=== PATIENT | male | born 1985 | race Caucasian/White ===

== ENCOUNTER 2020-02-20 13:33 | Emergency (ER) | payer OTHER, SELFPAY ==
[2020-02-20 14:30] VITALS: PULSE 81; RESP 20; TEMP 36.2; O2SAT 97; BMI 37.5
--- NOTE | 2020-02-20 14:46 | HMH.EDUTC ---
[facility] [place] Disposition Clinical Impression: Encounter for laboratory testing for COVID-19 virus Disposition: Home, Self-Care Condition on Discharge: Good Instructions: DI for COVID-19 (Suspected or Confirmed ), COVID-19: Testing and Tracing, Preventing the Spread of Coronavirus Discharge Instructions Additional Instructions: *Monitor Temp, Over the counter Motrin or Tylenol as directed/as needed Tylenol every 4 hours and Motrin every 6 hours (as long as your family doctor has told you that you can take it) for fever or pain. and straight to ER if unable to lower temp less than 101.0 after medication given Follow up IMMEDIATELY for new or worsening symptoms or no Noticeable improvement over the next 48-72 hours. 911 for difficulty breathing or swallowing You were tested for today for COVID19 your test result should be back in the next 24-48 hours, you may call to the [facility] to see if your test results are back in the next 48 hours [phone] [facility] hours are 9am-9pm You was given a handout with instructions for Self Quarantine and Self isolation for while you wait on test results and what to do if they are positive If you are positive the Health Dept will be contacting you also Referrals: Chaitanya Herrera [Primary Care Provider] - As needed Forms: Work/School Release Time of Disposition: 14:49 Medical Decision Making - Jeevan Inquiry Pt receiving controlled substance: No Jeevan was queried for this patient: No Vital Signs: 02/20/20 14:30 Temperature 97.1 F L Temperature Source Oral Pulse Rate [Right] 81 Respiratory Rate 20 02 Sat by Pulse Oximetry 97 Oxygen Delivery Method Room Air Orders (Tests/Meds): ORDERS Category Date Time Status Covid-19 Nasal PCR ([facility]) Routine Lab 02/20/20 14:28 Ordered [facility] [place] HPI - General Stated complaint: Covid test Time Seen by Provider: 02/20/20 14:46 Mode of Arrival: Ambulatory Source of Information: Patient Limitations: No Limitations Description of Symptoms (Recalled from Triage Doc. by RN): COVID TEST D/T EXPOSURE; DENIES SYPTOMS HEENT Symptoms (Recalled from RN notes): No Resp Symptoms (Recalled from RN notes): No Skin Symptoms (Recalled from RN notes): No MS Symptoms (Recalled from RN notes): No Functional Status (Recalled from RN notes): WNL - History of Present Illness Provider Complaint: Patient state that he was recently around someone that has recently tested positive for COVID State that he wanted to get tested States that he isnt have any symptoms - Related Data Allergies Allergy/AdvReac Type Severity Reaction Status Date / Time No Known Allergies Allergy Verified 10/05/18 11:48 - Worker's Comp Is this a Worker's Comp case?: No H History - Hepatitis A Screen Drug use history?: No High risk sexual behaviors?: No History of sexually transmitted infection?: No Currently employed?: No Childcare worker?: No Do you have indoor plumbing?: Yes Do you have electricity?: Yes Attestation statement:: This patient has been screened for Hepatitis A risk factors. I have reviewed the patient's past medical history: Yes - Social History Alcohol Intake: never Occupational Status: other ROS Obtained: Yes All systems reviewed & no additional complaints, Yes Systems reviewed as appropriate & no additional complaints - Constitutional Constitutional: Reports system reviewed and no additional complaints, except as docu, Denies body ache, Denies chills, Denies fever(s), Denies headache(s) - ENT Ears, Nose, Mouth, and Throat: Reports system reviewed and no additional complaints, except as docu, Denies otalgia, Denies sinus pain, Denies sinus pressure, Denies sore throat - Cardiovascular Cardiovascular: Reports system reviewed and no additional complaints, except as docu Physical Exam - General General appearance: alert, in no apparent distress - Respiratory Respiratory exam: Present: normal lung sounds bilaterally. Absent: respiratory distress - C
[2020-02-20 14:52] VITALS: BP 00/00; PULSE 81; RESP 20; TEMP 36.2; O2SAT 97
--- NOTE | 2020-05-11 10:52 | PC.NURSE ---
@ 1041 Dr. Arizmendi on phone with Dr. Greenfield, being notified that this pt is being transferred from [facility] ER to [facility] and should be sent to bean sprout laborer. @1042- Report received from Tasha Jessica RN in [facility] to this RN. @1043- Dr. Arizmendi s/w [facility] ER MD- Dr. Tellez and received report. @1045- janitorial services supervisor Sherie Ambriz RN notified of the above. @1058- Dr. Arizmendi s/w Dr. Greenfield- notified he would like his team paged, 10min from the time pt leaves [facility]. @1100- s/w Tasha Jessica RN and notified that pt was just loaded into ambulance.
== END 2020-02-20 15:10 | disposition home or self-care (01) ==
PROVIDERS: Emergency Provider Nurse Practitioner; PCP Family Medicine
DX: Z20.822 Contact with and (suspected) exposure to COVID-19 (principal)
CPT/HCPCS: 99202; G0463; U0003

== ENCOUNTER 2020-05-11 11:34 | Observation (INO) | payer OTHER, SELFPAY ==
[2020-05-11] VITALS (21 sets, daily range): BP systolic 111–135; BP diastolic 50–87; PULSE 54–853; RESP 16–20; TEMP 36.6–36.9; O2SAT 94–98; BMI 37.5
--- NOTE | 2020-05-11 | IR_ITS ---
APPROVED REPORT Patient Location: Emergent Ingredient Handler: ANICETO Hastings RT (R) PROCEDURES Left heart catheterization Left ventriculogram Selective coronary angiogram INDICATION Acute non-ST elevation myocardial infarction Informed consent was obtained prior to the procedure. COMPLICATIONS None Estimated Blood Loss: less than 10ml TECHNIQUE One percent lidocaine used to anesthetize the right anterior aspect of the wrist. The right radial artery was accessed via the Seldinger technique. A 6 [place] sheath was placed in the right radial artery. 2.5 mg of verapamil, 800 mcg of nitroglycerin, 1mg Lidocaine and 5000 U Heparin were given through the arterial sheath. A Alyticspa catheter was also used to perform left heart catheterization, left ventriculogram and selective coronary angiogram. At the end of the procedure the sheath was removed good hemostasis was achieved using Traclet band, patient was transferred to the postop holding area in stable condition. ANGIOGRAPHIC RESULTS The left main artery Normal The left anterior descending artery Normal The circumflex artery Normal The right coronary artery Dominant normal The MCNEAL ventriculogram reveals Normal 60% The left ventricular end-diastolic pressure 18 mmHg IMPRESSION Normal coronary arteries Normal ejection fraction Mildly elevated LVEDP Elevated troponin likely secondary to myocarditis PLAN 1. Admit overnight and observe to make sure myocarditis does not progress into severe LV dysfunction 2. Supportive care 3. Check Covid status Electronically signed by : Heladio Greenfield, 05/11/2020 12:23:34
--- NOTE | 2020-05-11 11:33 | ECG_ITS ---
APPROVED REPORT Exam: Resting ECG HR:76 bpm ECG Measurements Heart Rate 76 AXES OK 182 P 55 QRSd 92 QRS -5 QT 382 T 22 QTc 429 Conclusion Normal sinus rhythm Normal ECG Electronically signed by : Bhaskar Zurita, 05/11/2020 21:04:54
--- NOTE | 2020-05-11 11:35 | HMH.EDCP ---
ED Disposition Clinical Impression: NSTEMI (non-ST elevated myocardial infarction) Disposition: Admitted as Observation Condition on Discharge: Good Time of Disposition: 11:50 - Critical Care Critical Care Time: No Attestation: On , the high probability of a clinically significant, sudden or life threatening deterioration of the following system(s) required my full and direct attention, intervention and personal management. The time I documented below is in addition to time spent performing reported procedures but includes the following listed in this critical care notation. Medical Decision Making - Medical Records Medical records reviewed: Yes: I reviewed the patient's medical records. - Jeevan Inquiry Pt receiving controlled substance: No Vital Signs: 05/11/20 11:34 Temperature 97.9 F Temperature Source Oral Pulse Rate [Left Brachial] 74 Respiratory Rate 19 Blood Pressure [Left Arm] 128/84 Blood Pressure Mean [Left Arm] 98 Blood Pressure Source [Left Arm] Automatic Cuff 02 Sat by Pulse Oximetry 97 Oxygen Delivery Method Room Air - Lab Data Lab results reviewed: Yes: I reviewed the patient's lab results. Orders (Tests/Meds): ORDERS Category Date Time Status Full Resp Panel w/COVID ([facility]) Routine Lab 05/11/20 11:50 Ordered - ECG Data Tracing #1 Normal sinus rhythm, 76 bpm, normal intervals, no ectopy, no ST elevation or depression. ECG initial impression date: 05/11/20 ECG initial impression time: 11:35 - SAMANTHA Score for Non-Stemi Age of Patient: 30-39 years old Heart Rate: 70-89 bpm Systolic Blood Pressure: 120-139 mmhg Serum Creatinine: 1.20-1.59 mg/dl CHF Killip Class: I-No CHF Other Risk Factors: None Non-Stemi Risk Score: 61 Medical Decision Narrative: 35yo M transferred for chest pain. Dr. Greenfield plans take the patient to the [facility] at this time. I have reviewed documentation from outside facility, including labs. Was unable to view portable chest x-ray as the disc is not able to load into our system in the emergency department. Patient is on a heparin drip at this time. He is pain-free. D/w Dr. Quevedo, who accepts care of the pt following cleaning laborer. Chest Pain HPI - General Stated Complaint: chest pain Time Seen by Provider: 05/11/20 11:35 Source of Information: Patient, EMS - History of Present Illness HPI narrative: 35yo M without significant past medical history is transferred from [facility] secondary to chest pain. Transfer was arranged with Dr. Greenfield prior to the patient be accepted to the emergency department. Patient has had 2 days of chest pain. Pain woke him from sleep this morning. Left-sided chest pain that radiates down his left arm to his elbow. Denies nausea, shortness of breath, diaphoresis. No previous episodes similar to this. Patient takes no medication daily. Patient smokes cigarettes daily. Patient's father had a massive heart attack at 50. KATIUSKA 0400 - Related Data Prior Cardiac Testing/Procedures: no Echocardiogram, no MICHELLE, no Stress Test, no Stenting, no Cardiac Angiogram, no CTA Chest/CTA Coronary Angiography, no MRI, no CABG Home Medications Medication Instructions Recorded Confirmed No Known Home Medications 05/11/20 05/11/20 Allergies Allergy/AdvReac Type Severity Reaction Status Date / Time Penicillins Allergy Verified 05/11/20 11:49 [facility] History - Hepatitis A Screen Drug use history?: No Attestation statement:: This patient has been screened for Hepatitis A risk factors. I have reviewed the patient's past medical history: Yes (None) Amputation: No Fractures: Yes - Social History Alcohol Intake: never Occupational Status: other ROS Obtained: Yes All systems reviewed & no additional complaints - Constitutional Constitutional: Reports system reviewed and no additional complaints, except as docu Physical Exam - General General appearance: alert, in no apparent distress - Head Head exam
--- NOTE | 2020-05-11 11:48 | PC.NURSE ---
Patient is being taken to laboratory associate with SHEELA Morales and housekeeper/custodian/laundry worker Sherie at this time.
--- NOTE | 2020-05-11 11:56 | PC.NURSE ---
MD Arizmendi speaking with [facility] at this time about possible admission following heart cath.
--- NOTE | 2020-05-11 11:57 | PC.NURSE ---
Dr. Arizmendi s/w Dr. Quevedo, who is on-call for service pt.
--- NOTE | 2020-05-11 12:01 | PC.NURSE ---
1042 received a call from sharonda covarrubias, rn from [facility] ed that dr. hurd agrees to pt transfer of a stable non-stemi pt. ed physician spoke with dr. hurd and he will take pt to asset availability leader. pt will transfer per [facility] ems to [facility] ed. will have holley ed physician speak with Dr. Arizmendi ed physician at this time at [facility]. Dr. Hurd has also spoke with Dr. Arizmendi this AM prior to pt arrival 1050 Interventional Tech staff paged 1056 Nikki Mcgregor - Radiology 1057 Papi Flower, RN 1101 Nikki Farr, RN 1111 Dr. Hurd notified that Pt has left [facility] at 1100 per his request
[2020-05-11 12:03] LABS: Adenovirus,PCR Not Detected (NotDetected); Bordetella Pertussis Not Detected (NotDetected); Chlamydophila Pneumoniae, PCR Not Detected (NotDetected); Coronavirus 19, PCR Not Detected (NotDetected); Coronavirus 229E Not Detected (NotDetected); Coronavirus NL63 Not Detected (NotDetected); Coronavirus OC43 Not Detected (NotDetected); Coronovirus HKU1,PCR Not Detected (NotDetected); Human Metapneumovirus Not Detected (NotDetected); Influenza A, PCR Not Detected (NotDetected); Influenza AH1, 2009 Not Detected (NotDetected); Influenza AH1, PCR Not Detected (NotDetected); Influenza AH3,PCR Not Detected (NotDetected); Influenza B, PCR Not Detected (NotDetected); Mycoplasma Pneumoniae, PCR Not Detected (NotDetected); Parainfluenza 1, PCR Not Detected (NotDetected); Parainfluenza 2, PCR Not Detected (NotDetected); Parainfluenza 3, PCR Not Detected (NotDetected); Parainfluenza 4, PCR Not Detected (NotDetected); Respiratory Syncytial Virus Not Detected (NotDetected); Rhinovirus/Enterovirus Not Detected (NotDetected)
--- NOTE | 2020-05-11 12:23 | PC.NURSE ---
bed requested at this time, margie eric notified
[2020-05-11 12:42] LABS: CATHL Activated Clotting Time 248 SEC (74-125)
--- NOTE | 2020-05-11 13:08 | PC.NURSE ---
PT ARRIVED TO FLOOR VIA STRETCHER AT 1306
--- NOTE | 2020-05-11 16:43 | PC.NURSE ---
Pt alert and oriented and able to make needs known. Pt is now awake since heart cath and has no c/o. CB in reach and at bedside. RR even and unlabored. Lungs cta. Abd soft and non tender. VSS. Dsg applied to R wrist after removing radial band. Pt sitting up and eating gram crackers and pb. Have educated pt and on cath site and not to use, lift or bend R wrist at this time. Mx continues.
[2020-05-12] VITALS: BP 133/83; PULSE 70; PULSE 76; RESP 16; TEMP 36.6; O2SAT 98
[2020-05-12 04:00] VITALS: BP 138/96; PULSE 67; PULSE 70; RESP 16; TEMP 36.7; O2SAT 97
[2020-05-12 05:00] VITALS: BMI 37.3
--- NOTE | 2020-05-12 05:31 | PC.NURSE ---
pt has had no acute changes. dressing to right radial site intact with no bleeding noted. iv patent. alert and oriented. independent with care. call light in reach. telemetry reads NSR. vss. will continue to monitor
[2020-05-12 07:13] LABS: Basophils # 0.1 K/mm3 (0-0.2); Basophils % 0.7 % (0.1-2.0); Eosinophils # 0.3 K/mm3 (0.0-0.4); Eosinophils % 2.9 % (0.1-12.0); Hematocrit 48.6 % (42.0-52.0); Hemoglobin 16.7 g/dL (14.1-18.0); Lymphocytes # 1.9 K/mm3 (0.7-4.5); Lymphocytes % 22.3 % (10-50); Mean Corpuscular HGB Conc 34.3 g/dL (31.8-35.4); Mean Corpuscular Hemoglobin 29.8 pg (27.0-31.2); Mean Corpuscular Volume 86.8 fl (80-94); Mean Platelet Volume 8.1 fl (7.4-10.4); Monocytes # 0.4 K/mm3 (0.1-1.0); Monocytes % 4.6 % (1.7-9.3); Neutrophils % 69.4 % (37.0-80.0); Platelet Count 320 K/mm3 (142-424); Red Cell Distribution Width 12.5 % (11.5-17.5); White Blood Count 8.7 K/mm3 (4.8-10.8)
[2020-05-12 07:17] LABS: Chloride 105 mmol/L (98-107); Potassium 4.3 mmoL/L (3.5-5.1); Sodium 139 mmol/L (136-145)
[2020-05-12 07:20] LABS: Anion Gap 11.3 mEq/L (5-15); Blood Urea Nitrogen 9 mg/dl (9-20); Calcium 9.3 mg/dl (8.4-10.2); Carbon Dioxide 27 mmol/L (22.0-30.0); Creatinine Clearance Estimated 218 mL/min (50-200); Estimated Glomerular Filt Rate 95 ml/min (>60); GFR (African American) 116 ML/MIN (>60); Glucose 104 mg/dl (74-100)
[2020-05-12 07:21] VITALS: BP 126/80; PULSE 68; RESP 19; TEMP 36.9; O2SAT 98
[2020-05-12 08:00] VITALS: PULSE 70
--- NOTE | 2020-05-12 09:00 | HMH.HPDC ---
General - General Admission date:: 05/11/20 Discharge date: 05/12/20 *Admission Date: 05/11/20 *Chief complaint: chest pain *History of present illness: 35yr old male transferred from [facility] secondary to chest pain. Transfer was arranged with Dr. Greenfield prior to the patient be accepted to the emergency department. Patient states he had a weird chest pain that radiated to shoulder for 2 days. Patient states Pain woke him from sleep. Left-sided chest pain that radiates down his left arm to his elbow. Denies nausea, shortness of breath, diaphoresis. Patient smokes cigarettes daily. Patient's father had a massive heart attack at 50. patient admitted for work up and cardiology consult [facility] History I have reviewed the patient's past medical history: Yes Medical History: Denies:: Cancer, Diabetes Mellitus Type 1, Diabetes Mellitus Type 2 *Have you ever received a pneumonia vaccine?: No *Have you received a flu vaccine this season?: No Laterality Cases: Bilateral: Tonsillectomy Amputation: No Fractures: Yes - *Social History Smoking Status: Current every day smoker Tobacco Type: cigarettes # Packs/Day (cigarettes): 1 Alcohol Intake: never Alcohol Intake Frequency:: holidays/special occasions only *Occupational Status:: other Housing: house Household Members: spouse, children *Travel in the last 8 weeks: None Family Hx:: Coronary Artery Disease Review of Systems - Constitutional Denies body ache(s) - Eyes Denies change in vision - ENT Denies change in voice - *Cardiovascular Reports chest pain, Reports chest pain at rest, Reports chest pain with activity - *Respiratory Denies chest congestion - *Gastrointestinal Denies bloating, Denies nausea, Denies vomiting - *Genitourinary Denies urinary frequency - *Musculoskeletal Denies decreased muscle mass, Denies body aches - Integumentary/Breasts Denies rash - *Neurologic Denies other visual disturbances - Psychiatric Denies change in sex drive - Endocrine Denies increased thirst - Hematologic/Lymphatic Denies enlarged lymph nodes - Allergic/Immunologic Denies tongue swelling Exam Vital signs and Labs for Last 24 Hours: Temp Pulse Resp BP Pulse Ox 98.5 F 70 19 126/80 98 05/12/20 07:21 05/12/20 08:00 05/12/20 07:21 05/12/20 07:21 05/12/20 07:21 Laboratory Results - last 24 hr 05/11/20 11:41: Chlamy pneumoniae PCR Not detected, Adenovirus (PCR) Not detected, B. pertussis DNA (PCR) Not detected, Coronavirus OC43 (PCR) Not detected, Coronavirus HKU1 (PCR) Not detected, Coronavirus 229E (PCR) Not detected, SARS-CoV-2 (PCR) Not detected, Coronavirus NL63 (PCR) Not detected, Human Metapneumovir PCR Not detected, Influenza A (H1) PCR Not detected, Influ A (H1N1/09) PCR Not detected, Influenza A (H3) PCR Not detected, Influenza Type A (PCR) Not detected, Influenza Type B (PCR) Not detected, M. pneumoniae (PCR) Not detected, Parainfluenza 1 (PCR) Not detected, Parainfluenza 2 (PCR) Not detected, Parainfluenza 3 (PCR) Not detected, Parainfluenza 4 (PCR) Not detected, RSV (PCR) Not detected, Entero/Rhino (PCR) Not detected 05/11/20 12:08: Activated Clotting Time 248 H* 05/12/20 06:57: WBC 8.7, RBC 5.60, Hgb 16.7, Hct 48.6, MCV 86.8, MCH 29.8, MCHC 34.3, RDW 12.5, Plt Count 320, MPV 8.1, Neut % (Auto) 69.4, Lymph % (Auto) 22.3, [place] % (Auto) 4.6, Eos % (Auto) 2.9, Baso % (Auto) 0.7, Neut # (Auto) 6.0, Lymph # (Auto) 1.9, [place] # (Auto) 0.4, Eos # (Auto) 0.3, Baso # (Auto) 0.1 05/12/20 06:57: Sodium 139, Potassium 4.3, Chloride 105, Carbon Dioxide 27, Anion Gap 11.3, BUN 9, Creatinine 0.90, Estimated Creat Clear 218, Estimated GFR 95, Est GFR ( Amer) 116, Glucose 104 H, Calcium 9.3 I & O for Last 24 hours: Intake & Output 05/09/20 05/10/20 05/11/20 05/12/20 11:59 11:59 11:59 11:59 Intake Total 360 / 360 Balance 360 / 360 Weight 300 lb 299 lb 15.939 oz - Constitutional no acute distress, obese - *
--- NOTE | 2020-05-12 10:22 | PC.NURSE ---
PT LEAVING FLOOR WITH NURSE AT 1020
== END 2020-05-12 10:20 | disposition home or self-care (01) ==
LOC: ER 12:01 → CATHLAB 12:57 → 2ND 12:57
PROVIDERS: Admitting Provider Family Medicine; Emergency Provider Family Medicine; PCP Family Medicine; Referring Provider Internal Medicine; Visit Provider Family Medicine
DX: I51.4 Myocarditis, unspecified (principal)
CPT/HCPCS: 80048; 85025; 85347; 87581; 87633; 87798; 93005; 93458; 99152; 99203; C1725; C1760; C1769; G0378; G0463; J1644; Q9967

== ENCOUNTER → 2020-05-31 13:39 | Outpatient (CLI) | payer OTHER, SELFPAY ==
--- NOTE | 2020-05-31 13:40 | CA_ITS ---
APPROVED REPORT EXAM: Comprehensive 2D, Doppler, and color-flow Echocardiogram Circulation Man: Mahogany Wang RT(R) Ht: 6 ft 3 in Wt: 300lbs BSA: 2.61 BP: 126/87 mmHg Indications: CP, smoker, ALCAZAR, myocarditis, pericarditis on heart cath. Echo Enhancing Agent Indication: Endocardial border delineation Agent(s) / Amount(s) Used: Definity 2 cc 2D Dimensions LVOT 2.76 cm (M/F) 1.5-2.5 M-Mode Dimensions RVDd 2.55 cm (0.9-2.6) LA Diam 3.02 cm (1.9-4.0) LVDd 5.35 cm (3.5-5.7) Ao Diam 3.68 cm (2.0-3.7) LVDs 4.59 cm (3.5-5.7) IVSd 1.15 cm (0.6-1.1) PWd 0.76 cm (0.6-1.1) EF (Teich) 30.00% FS 14.20% EDV (Teich) 138.30 mL ESV (Teich) 96.80 mL LV Diastology E Decel Time 213.00 (160-240 msec) E/A Ratio 0.9 MED E' 9.40 (< 7 cm/sec) E'/MED E' Ratio 7.82 (>14) LAT E' 11.30 (<10 cm/sec) E/LAT E' Ratio 6.50 (>14) Mitral Valve MV E Max Valentín. 73.00 (40-130 cm/s) MV A Velocity 79.00 (40-130 cm/s) E/A Ratio 0.93 MV Decel. Time 213.00 (160-240 ms) MV PHT 62.00 ms Left Ventricle Technically difficult study because of the patient factors and poor acoustic windows, Definity contrast was utilized to delineate the endocardial surfaces. Left atrium is normal size, left ventricle is normal size, there is no concentric left ventricular hypertrophy, visually estimated ejection fraction 55% with no regional wall motion abnormality, there is no left ventricular thrombus seen. Diastolic parameters are within normal range. Right Ventricle Right atrium and right ventricle are normal size and contractility. Aortic Valve Aortic valve is grossly normal, there is no aortic stenosis or aortic insufficiency. Mitral Valve Mitral valve grossly normal, there is trace mitral regurgitation. Tricuspid Valve Tricuspid grossly normal, there is trace tricuspid regurgitation, tricuspid regurgitation jet velocity is inadequate for calculation of the right ventricular systolic pressure. Pulmonic Valve Pulmonic valve is poorly visualized. Great Vessels Aortic root is normal size. Pericardium No significant pericardial effusion noted. Conclusion 1. Normal left ventricular size, preserved left ventricular systolic function, visually estimated ejection fraction 55% with no regional wall motion abnormality, diastolic parameters are within normal range. There is no left ventricular thrombus seen. 2. Trace mitral and tricuspid regurgitation. 3. No significant pericardial effusion noted. Electronically signed by : Deniz Casillas, 05/31/2020 14:21:30
== END ==
PROVIDERS: PCP Family Medicine; Visit Provider Urology
DX: R06.00 Dyspnea, unspecified (principal); R94.30 Abnormal result of cardiovascular function study, unspecified; Z72.0 Tobacco use; Z82.49 Family history of ischemic heart disease and other diseases of the circulatory system
CPT/HCPCS: 93306; Q9957

== ENCOUNTER 2021-02-19 09:19 | Emergency (ER) | payer SELFPAY ==
--- NOTE | 2021-02-19 10:55 | HMH.EDUTC ---
[facility] [place] Clinical Impression: Sinusitis Qualifiers: Sinusitis location: unspecified location Chronicity: acute Recurrence: non-recurrent Qualified Code(s): J01.90 - Acute sinusitis, unspecified Disposition: Home, Self-Care Condition on Discharge: Good Instructions: DI for Sinusitis Additional Instructions: Drink plenty of fluids. Take tylenol or ibuprofen for pain or fever. Take the medications as directed. Follow up with your regular doctor. GO TO THE ER FOR ANY WORSENING SYMPTOMS Don't start the oral steroids until tomorrow, since you had the shot here today. Prescriptions: Ibuprofen [Ibuprofen 800mg Tablet] 800 mg PO Q8HP PRN #30 tab PRN Reason: Moderate Pain Transmission Status: Received by [facility] #[id number] methylPREDNISolone [Medrol] 4 mg PO DIRECTED 6 Days #21 packet Transmission Status: Received by [facility] #[id number] Cefdinir [Omnicef 300mg Capsule] 300 mg PO BID #20 cap Transmission Status: Received by [facility] #[id number] Referrals: Chaitanya Herrera [Primary Care Provider] - Forms: Work/School Release Time of Disposition: 11:32 Medical Decision Making - Medical Records Medical records reviewed: No: I reviewed the patient's medical records. - Jeevan Inquiry Pt receiving controlled substance: No Vital Signs: 02/19/21 10:58 02/19/21 11:55 Temperature 97.8 F 97.8 F Temperature Source Oral Pulse Rate 72 Pulse Rate [Left] 72 Respiratory Rate 16 16 Blood Pressure 136/102 H Blood Pressure [Right Arm] 136/102 H Blood Pressure Mean [Right Arm] 113 02 Sat by Pulse Oximetry 98 - Lab Data Lab Results 02/19/21 11:03: Strep Scn Rapid Clinic Negative Orders (Tests/Meds): ED MEDICATIONS Discontinued Medications Generic Name Dose Route Start Last Admin Trade Name Freq PRN Reason Stop Dose Admin Dexamethasone Sodium Phosphate 8 mg 02/19/21 11:28 02/19/21 11:37 Dexamethasone 4mg/Ml 1ml Vial IM 02/19/21 11:29 8 mg ONCE ONE Administration ORDERS Category Date Time Status Strep Screen Confirmation Stat Micro 02/19/21 11:03 Received [facility] [place] - General Stated complaint: sinus pressure Time Seen by Provider: 02/19/21 10:55 - History of Present Illness Provider Complaint: He states that he is having pain and pressure in his sinuses on the left side of his face. His symptoms started with he had an abscessed tooth that had to be pulled. His took clindamycin for 5 days before the tooth was pulled. Once the tooth was pulled his symptoms got some better, but now his sinuses are worse than they were before. He has saw his dentist for this and he was prescribed a z-pack. He states that the z-pack has not been helping very much. - Related Data Previous Rx's Medication Instructions Recorded Cefdinir [Omnicef 300mg Capsule] 300 mg PO BID #20 cap 02/19/21 Ibuprofen [Ibuprofen 800mg 800 mg PO Q8HP PRN #30 tab 02/19/21 Tablet] methylPREDNISolone [Medrol] 4 mg PO DIRECTED 6 Days #21 02/19/21 packet Allergies Allergy/AdvReac Type Severity Reaction Status Date / Time Penicillins Allergy Verified 06/11/20 11:04 [facility] History - Hepatitis A Screen Attestation statement:: This patient has been screened for Hepatitis A risk factors. I have reviewed the patient's past medical history: Yes Medical History: Denies:: Cancer, Diabetes Mellitus Type 1, Diabetes Mellitus Type 2 Laterality Cases: Bilateral: Tonsillectomy Amputation: No Fractures: Yes - Social History Smoking Status: Current every day smoker Tobacco Type: cigarettes # Packs/Day (cigarettes): 1 Alcohol Intake: never Alcohol Intake Frequency:: holidays/special occasions only Occupational Status: other Housing: house Household Members: spouse, children Family Hx:: Coronary Artery Disease ROS Obtained: Yes All systems reviewed & no additional complaints - Constitutional Constitutional: Denies chi
[2021-02-19 10:58] VITALS: BP 136/102; PULSE 72; RESP 16; TEMP 36.6; O2SAT 98; BMI 37.5
[2021-02-19 11:06] LABS: UTC Strep Screen (Rapid) Negative (Negative)
[2021-02-19 11:55] VITALS: BP 136/102; PULSE 72; RESP 16; TEMP 36.6
== END 2021-02-19 11:57 | disposition home or self-care (01) ==
PROVIDERS: Emergency Provider Nurse Practitioner Family; PCP Family Medicine
DX: J01.90 Acute sinusitis, unspecified (principal); F17.210 Nicotine dependence, cigarettes, uncomplicated
CPT/HCPCS: 87880; 96372; 99202; G0463